=== PATIENT | female | born 1995 | race Caucasian/White ===

== ENCOUNTER 2017-07-04 23:41 | Emergency (ER) | payer OTHER ==
[~2017-07-04] VITALS: Ht 160 cm; Wt 85.5 kg
[2017-07-04 23:46] VITALS: Ht 160 cm; Wt 85.5 kg
[2017-07-04] MEDS ORDERED: ALBUTEROL 0.5% (NEB) 2.5 MG/0.5 ML AMP INH STA (23:58)
[2017-07-04] MEDS ORDERED: IPRATROPIUM (NEB) 0.5 MG/2.5 ML AMP INH STA (23:58)
[2017-07-04] MEDS ORDERED: DEXAMETHASONE 10 MG/ML 1 ML INJ IM STA (23:58)
[2017-07-05] MEDS ORDERED: ALBU18HF INHALATION (01:26)
[2017-07-05] MEDS ORDERED: PRED20TA PO (01:26)
[2017-07-05 01:29] VITALS: PULSE 106; RESP 20
--- NOTE | 2017-07-05 01:46 | ERD ---
ER Documentation Chief Complaint Date/Time DATE: 07/05/17 TIME: 01:36 Chief Complaint cough w/ sob x 1 day, hx-asthma HPI This is a 22-year-old female department today complaining of an asthma attack . Patient states that she started feeling some wheezing and shortness of breath yesterday that got worse today. States that she has had to go to the hospital every month for the last 2 months. States that she feels pressure in her chest. States she has been out of her inhaler. States she has had a mild cough.Denies any fevers or chills.Denies recent prolonged travel, oral contraceptive use, cigarette smoking. ROS All systems reviewed and are negative except as per history of present illness. Medications Home Meds Active Scripts Prednisone* (Prednisone*) 20 Mg Tab, 40 MG PO DAILY for 4 Days, TAB Prov:CAMELIA MERCER PA-C 07/05/17 Albuterol Sulfate* (Ventolin HFA*) 18 Gm Hfa.aer.ad, 2 PUFF INHALATION Q4H, #1 INHALER Prov:CAMELIA MERCER PA-C 07/05/17 Allergies Allergies: Coded Allergies: No Known Allergy (Unverified , 07/04/17) PMhx/Soc Hx Respiratory Disorders: Yes (ASTHMA) Hx Alcohol Use: No Hx Substance Use: No Hx Tobacco Use: No Smoking Status: Never smoker Physical Exam Vitals Vital Signs Date Time Temp Pulse Resp B/P Pulse Ox O2 Delivery O2 Flow Rate FiO2 07/05/17 01:29 106 20 96 Room Air 07/05/17 00:17 97 22 96 21 07/04/17 23:46 98.2 98 20 128/92 96 Physical Exam Const: mild, Patient in tripod position Head: Atraumatic Eyes: Normal Conjunctiva ENT: Normal External Ears, Nose and Mouth. Neck: Full range of motion..~ No meningismus. Resp: Diffuse wheezing bilaterally in all lung torres. Cardio: Regular rate and rhythm, no murmurs Abd: Soft, non tender, non distended. Normal bowel sounds Skin: No petechiae or rashes Back: No midline or flank tenderness Ext: No cyanosis, or edema Neur: Awake and alert Psych: Normal Mood and Affect Results 24 hrs Current Medications Medications (Trade) Dose Ordered Sig/Carlos Route PRN Reason Start Time Stop Time Status Last Admin Dose Admin Albuterol (Proventil 0.5% (Neb)) 10 mg ONCE STAT INH 07/04/17 23:58 07/05/17 00:02 DC 07/05/17 00:16 Ipratropium [place] (Atrovent 0.02% (Neb)) 1 mg ONCE STAT INH 07/04/17 23:58 07/05/17 00:02 DC 07/05/17 00:15 Dexamethasone (Decadron) 10 mg ONCE STAT IM 07/04/17 23:58 07/05/17 00:02 DC 07/05/17 00:09 Procedures/MDM Is a 22-year-old female presents to the emergency department today for an acute asthma exacerbation. Patient was complaining of feeling shortness of breath and wheezing for the past day and worse this evening. Patient was tripoding when I walked into the exam room and was unwilling to sit down. She was afebrile and otherwise well-appearing. Her oxygen saturation was 96% at that time. Patient was given a 1 hour continuous breathing treatment. She was also given Decadron IM. When I went back to check on the patient she was sitting comfortably in the recliner and she reported that the pain in her chest was gone. Patient symptoms at this time is consistent with acute asthma exacerbation. She has not had any fevers and I do not feel that she requires a chest x-ray at this time. Low suspicion for pneumonia, PE, abscess, pleural effusion, pneumothorax. Patient was given a refill on her Ventolin inhaler as well as a short course of prednisone for home. At this time the patient is stable for discharge and outpatient management. Patient should follow up with their PCP in the next 1-2 days. She was instructed to follow-up with her primary care doctor for possible referral to pulmonology specialist. They may return to the emergency department sooner for any persistent or worsening of symptoms. Patient understood and agreed with the plan. Departure Diagnosis: Primary Impression: Asthma exacerbation Condition: Fair Patient Instructions: Asthma, Acute (Adult) Referrals: KITTY PALUMBO MD,AURELIA HALL,SACHA IRVING,MARCO A MAYER,JETHRO FLAHERTY,RAJENDRA SCHREIBER,BERHANE XIE,MIYA MARTINES,ABBY BURNHAM,MYNOR MARLEY,CAMELIA RODRÍGUEZ,ARIC CLARKE,AZUL Vitale MD, [facility] Additional Instructions: Call your primary care doctor TOMORROW for an appointment during the next 1-2 days.See the doctor sooner or return here if your condition worsens before your appointment time. Make an appoint with your primary care doctor for referral to pulmonology specialist. Use inhaler and take prednisone as prescribed. CAMELIA MERCER PA-C Jul 05, 2017 01:46
== END 2017-07-05 01:37 | disposition home or self-care (01) ==
LOC: FTE 23:41
DX: J45.901 Unspecified asthma with (acute) exacerbation (principal)
CPT/HCPCS: 94644; 96372; J1100; Z7502; Z7610

== ENCOUNTER 2017-11-17 15:27 | Emergency (ER) | END 2017-11-17 16:41 | disposition home or self-care (01) ==